=== PATIENT | male | born 1990 | race Caucasian/White ===

== ENCOUNTER 2020-10-14 11:38 | Emergency (ER) | payer OTHER ==
[~2020-10-14] VITALS: Ht 172.7 cm; Wt 92.0 kg
[2020-10-14 12:07] VITALS: BP 125/65
== END 2020-10-14 15:31 | disposition left against medical advice (07) ==
LOC: ER 11:38
DX: R10.9 Unspecified abdominal pain (principal); Z53.21 Procedure and treatment not carried out due to patient leaving prior to being seen by health care provider